=== PATIENT | female | born 2000 | race Caucasian/White ===

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

== ENCOUNTER 2020-07-10 12:39 | Emergency (ER) | payer OTHER ==
[2020-07-10 12:45] VITALS: BP 128/93; PULSE 95; RESP 16; TEMP 98.6
[2020-07-10] MEDS ORDERED: OXYMETAZOLINE 0.05% NASL SPRAY 1 SPRAY BOTTLE NASAL STA (13:11)
--- NOTE | 2020-07-10 13:12 | ED ---
General Adult HPI - General Chief complaint: ENT Stated complaint: nose bleed Time Seen by Provider: 07/10/20 12:48 Source: patient Mode of arrival: ambulatory Limitations: no limitations - History of Present Illness Initial comments: 20-year-old female without any significant past medical history presents to the emergency room for nosebleed. Patient has had a nosebleed on and off for a week now. It comes and goes lasting only a few minutes. Today she felt nauseous and vomited once. This initiated the nosebleed again. States this lasted for about 15 minutes and then resolved. Patient states her mother wanted her to be evaluated.Patient has no other complaints at this time including shortness of breath, chest pain, abdominal pain, nausea or vomiting, headache, or visual changes. - Related Data Allergies Allergy/AdvReac Type Severity Reaction Status Date / Time No Known Allergies Allergy Verified 07/10/20 12:43 Review of Systems ROS Statement: Those systems with pertinent positive or pertinent negative responses have been documented in the HPI. ROS Other: All systems not noted in ROS Statement are negative. General Exam Limitations: no limitations General appearance: alert Head exam: Present: atraumatic Eye exam: Present: normal appearance, PERRL. Absent: scleral icterus ENT exam: Present: normal exam, normal oropharynx, mucous membranes moist, other (No nasal bleeding at this time. I can see a clot in the left side of the nose) Neck exam: Present: normal inspection, full ROM. Absent: tenderness Respiratory exam: Present: normal lung sounds bilaterally. Absent: respiratory distress, wheezes Cardiovascular Exam: Present: regular rate, normal rhythm, normal heart sounds GI/Abdominal exam: Present: soft, normal bowel sounds. Absent: distended, tenderness Course Vital Signs 07/10/20 12:41 Temperature 98.6 F Pulse Rate 95 Respiratory 16 Rate Blood Pressure 128/93 O2 Sat by Pulse 97 Oximetry Medical Decision Making - Medical Decision Making Hemostasis achieved prior to arrival. No active bleeding. No significant bleeding noted in the throat. I did give patient Afrin in case it starts again and told her to clamp. She will follow up with ENT. If she has worsening symptoms or cannot get it to stop bleeding she will return. Patient was tested for COVID given symptoms of nausea vomiting. She is aware to quarantine until results are obtained. Disposition Clinical Impression: Nosebleed Disposition: HOME SELF-CARE Condition: Good Instructions (If sedation given, give patient instructions): Nosebleed (ED) Additional Instructions: If bleeding begins again spray aspirin 2 sprays in each nostril and clamp for 20 minutes. Please follow up ENT. Return to the ER for any worsening symptoms. Please quarantine until COVID results obtained. Is patient prescribed a controlled substance at d/c from ED?: No Referrals: Britany Guardado MD [Primary Care Provider] - 1-2 days Bala Gonzalez MD [STAFF PHYSICIAN] - 1-2 days Time of Disposition: 13:12
== END 2020-07-10 13:35 | disposition home or self-care (01) ==
LOC: EC 12:39
DX: R04.0 Epistaxis (principal); R11.2 Nausea with vomiting, unspecified; Z20.822 Contact with and (suspected) exposure to COVID-19
CPT/HCPCS: 99283; U0003; U0005

== ENCOUNTER 2024-04-14 23:41 | Emergency (ER) | payer BC, OTHER ==
--- NOTE | 2024-04-15 00:58 | US ---
EXAMINATION TYPE: US transvaginal DATE OF EXAM: 04/15/2024 COMPARISON: NONE CLINICAL INDICATION: Female, 23 years old with history of possible left sided torsion; Pt states LLQ pain that started approx 24 hours ago TECHNIQUE: Transvaginal (TV). Transvaginal grayscale sonographic images of the pelvis were acquired. Doppler imaging: Color Doppler Images were obtained. Spectral doppler images were obtained. FINDINGS: Date of LMP: 5 days ago EXAM MEASUREMENTS: Uterus: 6.6 x 4.3 x 5.1 cm Endometrial Stripe: 0.5 cm Right Ovary: 3.6 x 3.5 x 2.9 cm Left Ovary: 4.6 x 4.6 x 4.1 cm 1. Uterus: Anteflexed wnl 2. Endometrium: wnl 3. Right Ovary: wnl 4. Left Ovary: Solid, isoechoic lesion within ovary= 3.2 x 2.8 x 2.3 cm ?etiology Spectral, color and waveform doppler imaging shows good arterial and venous flow within the ovaries ; 5. Bilateral Adnexa: wnl 6. Posterior cul-de-sac: Small amount of free fluid Heterogeneous anteverted uterus. Endometrial stripe measures within normal limits. Small amount of no nsimple fluid in the pelvic cul-de-sac is seen. Right ovary appears within normal limits with tiny peripheral follicles. Left ovary has a 3.2 cm slig htly heterogeneous hyperechoic avascular area could reflect a hemorrhagic cyst or solid mass. Short-t erm sonographic follow-up advised in 6-8 weeks time to reassess. Satisfactory blood flow to remainder of the left ovary is seen. IMPRESSION: Blood flow to both ovaries is visualized. [facility], , 04/15/2024 12:56 AM
--- NOTE | 2024-04-15 01:20 | ED ---
General Adult HPI - General Chief complaint: Abdominal Pain Stated complaint: abd pain Time Seen by Provider: 04/14/24 23:49 Source: patient Mode of arrival: EMS Limitations: no limitations - History of Present Illness Initial comments: Oma is a 23-year-old female who was transferred to our ER from an outside ER after ultrasound was concerning for possible ovarian torsion. Patient reports she has had left lower quadrant stabbing pelvic pain since yesterday, pain is not associated with any nausea vomiting or change in bowel or bladder habits. Patient is in a monogamous relationship with no concern for sexually transmitted infections. Patient reports she has a history of irregular periods and has been seen by gynecology in the distant past states that control usually caused her periods to be more irregular or prolonged so she is not on any control. She is not currently had a negative test outside facility. Dose of Toradol with outside facility and is now pain-free. - Related Data Previous Rx's Medication Instructions Recorded Naproxen 250 mg PO Q8HR PRN #30 tab 04/15/24 Allergies Allergy/AdvReac Type Severity Reaction Status Date / Time No Known Allergies Allergy Verified 04/14/24 23:48 Review of Systems ROS Statement: Those systems with pertinent positive or pertinent negative responses have been documented in the HPI. ROS Other: All systems not noted in ROS Statement are negative. Past Medical History Past Medical History: No Reported History History of Any Multi-Drug Resistant Organisms: None Reported Past Surgical History: No Surgical Hx Reported Past Psychological History: No Psychological Hx Reported Smoking Status: Never smoker Past Alcohol Use History: None Reported Past Drug Use History: None Reported General Exam - General Exam Comments Initial Comments: Physical Exam GENERAL: Patient is well-developed and well-nourished Patient is nontoxic and well-hydrated and is in no distress. HENT: Normocephalic, Atraumatic. EYES: PERRL, EOMI PULMONARY: Unlabored respirations. CARDIOVASCULAR: RRR Warm and well perfused extremities ABDOMEN: Nontender nondistended, nonperitoneal SKIN: No rashes or bruising : Patient declined pelvic exam NEUROLOGIC: Alert and oriented Normal speech Normal gait MUSCULOSKELETAL: Moving all extremities with no apparent injury PSYCHIATRIC: No SI/HI Limitations: no limitations Medical Decision Making - Medical Decision Making Was pt. sent in by a medical professional or institution (, PA, FELLER BUNCHER OPERATOR, urgent care, hospital, or [facility]...) When possible be specific @ -Yes. For from [facility] Did you speak to anyone other than the patient for history (EMS, parent, family, police, friend...)? What history was obtained from this source @ -Yes Did you review nursing and triage notes (agree or disagree)? Why? @ -I reviewed and agree with nursing and triage notes Were old charts reviewed (outside hosp., previous admission, EMS record, old EKG, old radiological studies, urgent care reports/EKG's, [facility] records)? Report findings @ -Packet was reviewed Differential Diagnosis (chest pain, altered mental status, abdominal pain women, abdominal pain men, vaginal bleeding, weakness, fever, dyspnea, syncope, he adache, dizziness, GI bleed, back pain, seizure, CVA, palpatations, mental health)? @. Cyst, ovarian mass, endometriosis EKG interpreted by me (3pts min.). @ -As above X-rays interpreted by me (1pt min.). @ -None done CT interpreted by me (1pt min.). @ -None done U/S interpreted by me (1pt. min.). @ -Left ovarian cyst/mass What testing was considered but not performed or refused? (CT, X-rays, U/S, labs)? Why? @ -None What meds were considered but not given or refused? Why? @ -None Did you discuss the management of the patient with other professionals (professionals i.e. , PA, FELLER BUNCHER OPERATOR, lab, RT, psych nurse, psych social worker, lipstick molder, teacher, environmental conservation officer, gearcase assembler)? Give summary @ -No Was smoking cessation discussed for >3mins.? @ -No Was critical care preformed (if so, how long)? @ -No Were there social determinants of health that impacted care today? How? (Homelessness, low income, unemployed, alcoholism, drug addiction, transportation, low edu. Level, literacy, decrease access to med. care, usp, rehab)? @ -No Was there de-escalation of care discussed even if they declined (Discuss DNR or withdrawal of care, Hospice)? DNR status @ -No What co-morbidities impacted this encounter? (DM, HTN, Smoking, COPD, CAD, Cancer, CVA, ARF, Chemo, Hep., AIDS, mental health diagnosis, sleep apnea, morbid obesity)? @ -None Was patient admitted / discharged? Hospital course, mention meds given and route, prescriptions, significant lab abnormalities, going to OR and other pertinent info. @ -Discharged Patient seen and evaluated, history obtained from patient, Ultrasound repeated and negative, patient comfortable, US results discussed, plan for out patient follow up with gyne. Cannot rule out ovarian mass including malignancy and she needs close follow-up likely for repeat imaging and possibly additional diagnostic procedures. Undiagnosed new problem with uncertain prognosis? @ -Yes ovarian mass - possibly cyst vs solid mass Drug Therapy requiring intensive monitoring for toxicity (Heparin, Nitro, Insulin, Cardizem)? @ -No Were any procedures done? @ -No Diagnosis/symptom? @ -Ovarian cystic mass Acute, or Chronic, or Acute on Chronic? @ -Default Uncomplicated (without systemic symptoms) or Complicated (systemic symptoms)? @ -Default Side effects of treatment? @ -No Exacerbation, Progression, or Severe Exacerbation? @ -No Poses a threat to life or bodily function? How? (Chest pain, USA, MD, pneumonia, PE, COPD, DKA, ARF, appy, cholecystitis, CVA, Diverticulitis, Homicidal, Suicidal, threat to staff... and all critical care pts) @ -No Disposition Clinical Impression: Ovarian cystic mass Disposition: HOME SELF-CARE Condition: Stable Prescriptions: Naproxen 250 mg PO Q8HR PRN #30 tab PRN Reason: Pain Is patient prescribed a controlled substance at d/c from ED?: No Referrals: Britany Guardado MD [Primary Care Provider] - 1-2 days Inocencio Milligan MD [STAFF PHYSICIAN] - 1-2 days
[2024-04-15 01:57] VITALS: BP 111/83; PULSE 77; RESP 16; TEMP 97.9
== END 2024-04-15 02:16 | disposition home or self-care (01) ==
LOC: EC 23:41
DX: N83.202 Unspecified ovarian cyst, left side (principal)
CPT/HCPCS: 76830; 93975; 99284